=== PATIENT | male | born 1975 | race Caucasian/White ===

== ENCOUNTER 2020-01-07 15:19 | Emergency (ER) | payer BC, SELFPAY ==
--- NOTE | ~2020-01-07 | XR_ITS ---
XR finger 5th LT min 2V 01/07/2020 16:14 INDICATION: Left fifth finger pain after being smashed by rock PROCEDURE: 4 views left fifth finger COMPARISON: No prior studies for comparison. FINDINGS: Fracture, dislocation or subluxation is not identified. There is soft tissue swelling overl jay the distal phalanx ventrally with soft tissue gas, consistent with laceration. No foreign body i dentified. No foreign bodies are identified. IMPRESSION: 1: NO ACUTE BONE OR JOINT ABNORMALITY IDENTIFIED. Reviewed, dictated and finalized at location A.
[2020-01-07 15:36] VITALS: BP 134/81; PULSE 86; RESP 20; TEMP 37.1; O2SAT 100
--- NOTE | 2020-01-07 15:53 | ED.UPPEXIN ---
HPI - Extremity Injury (Upper) General Chief Complaint: Extremity Injury, Upper Stated Complaint: Left pinky injury Time Seen by Provider: 01/07/20 15:41 Source: patient and RN notes reviewed Mode of arrival: ambulatory Limitations: no limitations History of Present Illness HPI narrative: Patient presents today complaining of a laceration and injury to his left fifth finger. Injury occurred just prior to arrival. States he was lifting a piece of concrete with some metal in it. He is unsure if the metal or the concrete cut his finger. Denies numbness or tingling in the finger. States he believes he had a tetanus shot approximately 3 years ago. He has tried no [id number] interventions prior to arrival. MD complaint: injury to: finger Related Data Home Medications Medication Instructions Recorded Confirmed No Home Medications 01/07/20 01/07/20 Allergies Allergy/AdvReac Type Severity Reaction Status Date / Time No Known Allergies Allergy Verified 01/07/20 15:46 Review of Systems Review of Systems: Narrative: CONSTITUTIONAL: Denies body aches, fever, chills, or sweats. EYES: Denies visual changes, redness, or discharge. ENT: Denies rhinorrhea, congestion, sore throat, or otalgia. CARDIOVASCULAR: Denies chest pain, palpitations, or edema. RESPIRATORY: Denies cough or dyspnea. GASTROINTESTINAL: Denies abdominal pain, nausea, vomiting, or diarrhea. GENITOURINARY: Denies dysuria or hematuria. SKIN: Denies rash, itching, or wounds. MUSCULOSKELETAL: Denies back pain, or myalgia. Left fifth finger injury NEUROLOGIC: Denies headache, numbness, tingling, or weakness. PSYCH: Denies depression or anxiety. PMFSH Comments At time of signature, I have reviewed and agree with nursing past medical, surgical, social and family history unless otherwise noted. Please see nursing chart for further information. There is no relevant family history pertinent to the presenting complaint Exam Narrative: Exam Narrative: GENERAL: Well-appearing, well-nourished, and in no acute distress. HEAD: Normocephalic, atraumatic. EYES: EOMI. No redness or drainage. Conjunctivae normal. ENT: Mucous membranes pink and moist. NECK: Normal AROM. CHEST: No respiratory distress. EXTREMITIES: 2.5cm full-thickness laceration to the volar aspect of the left third finger, distal phalanx. No active bleeding. Distal sensation intact. Capillary refill normal. Full AROM against resistance. SKIN: Warm, dry, no rash. NEURO: No focal deficits. Alert and oriented x3. Gait steady. PSYCH: Normal affect. No signs of depression or anxiety. Course Vital Signs Vital signs: Vital Signs Temperature 98.7 F 01/07/20 15:36 Pulse Rate 86 01/07/20 15:36 Respiratory Rate 20 01/07/20 15:36 Blood Pressure 134/81 01/07/20 15:36 Pulse Oximetry 100 01/07/20 15:36 Temperature 98.7 F 01/07/20 15:36 Pulse Rate 86 01/07/20 15:36 Respiratory Rate 20 01/07/20 15:36 Blood Pressure 134/81 01/07/20 15:36 Pulse Oximetry 100 01/07/20 15:36 Reviewed. Pt has been instructed to follow up with his PCP regarding his elevated blood pressure today. Procedures Laceration Laceration 1: Date: 01/07/20 Time: 16:32 Site: upper extremity (Left fifth finger) Size (cm): 2.5 Description: irregular Depth: simple, single layer Local Anesthetic: lidocaine 1% Amount of anesthesia used (mL): 6 Pre-repair: wound explored and irrigated extensively ====== Skin Level ====== Skin layer closed with: nylon Size (cm): 5-0 Number of sutures: 6 ====== Subcutaneous Layer ====== ====== Muscle Layer ====== ====== Tendon Layer ====== Dressing: RN applied nonadherent dressing. Digital block achieved anesthesia. MDM - Extremity Injury (Upper) Differential Diagnosis Differential diagnosis: Likely other (Laceration, finger fracture, open fracture) Imagi
== END 2020-01-07 16:45 | disposition home or self-care (01) ==
PROVIDERS: Emergency Provider Nurse Practitioner
DX: S61.217A Laceration without foreign body of left little finger without damage to nail, initial encounter (principal); X58.XXXA Exposure to other specified factors, initial encounter
CPT/HCPCS: 12001; 73140; 99203; G0463

== ENCOUNTER 2020-01-14 15:17 | Emergency (ER) | payer BC, SELFPAY ==
[2020-01-14 15:29] VITALS: BP 141/98; PULSE 98; RESP 20; TEMP 37; O2SAT 100
--- NOTE | 2020-01-14 15:36 | ED.WOUNDLAC ---
HPI - Wound/Laceration General Chief Complaint: Wound/Laceration Stated Complaint: Suture REmoval Time Seen by Provider: 01/14/20 15:29 Source: patient, RN notes reviewed and old records reviewed Mode of arrival: ambulatory Limitations: no limitations History of Present Illness HPI narrative: Patient presents today for suture removal from his left fifth finger. 6 sutures were placed at [facility] on 01/07/2020, 7 days ago. Denies difficulties at home. Denies any current pain or drainage. Related Data Home Medications Medication Instructions Recorded Confirmed No Home Medications 01/07/20 01/07/20 Allergies Allergy/AdvReac Type Severity Reaction Status Date / Time No Known Allergies Allergy Verified 01/07/20 15:46 Review of Systems Review of Systems: Narrative: CONSTITUTIONAL: Denies body aches, fever, chills, or sweats. EYES: Denies visual changes, redness, or discharge. ENT: Denies rhinorrhea, congestion, sore throat, or otalgia. CARDIOVASCULAR: Denies chest pain, palpitations, or edema. RESPIRATORY: Denies cough or dyspnea. GASTROINTESTINAL: Denies abdominal pain, nausea, vomiting, or diarrhea. GENITOURINARY: Denies dysuria or hematuria. SKIN: Denies rash, itching. + Left fifth finger wound MUSCULOSKELETAL: Denies back pain, joint pain, or myalgia. NEUROLOGIC: Denies headache, numbness, tingling, or weakness. PSYCH: Denies depression or anxiety. PMFSH Social History Social History Gender identity (if verbalized by the patient): Male Comments At time of signature, I have reviewed and agree with nursing past medical, surgical, social and family history unless otherwise noted. Please see nursing chart for further information. There is no relevant family history pertinent to the presenting complaint Exam Narrative: Exam Narrative: GENERAL: Well-appearing, well-nourished, and in no acute distress. HEAD: Normocephalic, atraumatic. EYES: EOMI. No redness or drainage. Conjunctivae normal. ENT: Mucous membranes pink and moist. NECK: Normal AROM. CHEST: No respiratory distress. EXTREMITIES: Normal range of motion. No edema. SKIN: Warm, dry, no rash. Healing laceration to the left fifth finger. 6 sutures intact. No active drainage. Full AROM. Distal sensation intact. Capillary refill normal. No signs of infection. NEURO: No focal deficits. Alert and oriented x3. Gait steady. PSYCH: Normal affect. No signs of depression or anxiety. Course Vital Signs Vital signs: Vital Signs Temperature 98.6 F 01/14/20 15:29 Pulse Rate 98 01/14/20 15:29 Respiratory Rate 20 01/14/20 15:29 Blood Pressure 141/98 H 01/14/20 15:29 Pulse Oximetry 100 01/14/20 15:29 Temperature 98.6 F 01/14/20 15:29 Pulse Rate 98 01/14/20 15:29 Respiratory Rate 20 01/14/20 15:29 Blood Pressure 141/98 H 01/14/20 15:29 Pulse Oximetry 100 01/14/20 15:29 Reviewed. Pt has been instructed to follow up with his PCP regarding his elevated blood pressure today. Procedures Other Procedure Procedure 1: Other Procedure: 6 intact sutures removed from the left fifth finger. No signs of infection. No dehiscence noted. Small scabbing formed. MDM - Wound/Laceration Differential Diagnosis Differential diagnosis: Likely laceration and other (Dehiscence) Critical Care Time Critical Care Time Critical Care Time: No Discharge Plan Discharge Clinical Impression: Visit for suture removal Patient Disposition: Home, Self-Care Condition: Stable Instructions: Stitches Removal (ED) Additional Instructions: Your sutures have been removed. No signs of infection. Keep covered until fully healed. Follow-up with your doctor with any concerns. Your blood pressure was elevated above 120/80 today at Urgent Care. This puts you above the threshold for follow up. Please schedule a followup visit with your personal physician as soon as possible, for further evaluation and treatment. Even blood
== END 2020-01-14 15:42 | disposition home or self-care (01) ==
PROVIDERS: Emergency Provider Nurse Practitioner
DX: S61.217D Laceration without foreign body of left little finger without damage to nail, subsequent encounter (principal); X58.XXXD Exposure to other specified factors, subsequent encounter
CPT/HCPCS: 99213; G0463

== ENCOUNTER 2020-01-16 15:21 | Emergency (ER) | payer BC, SELFPAY ==
--- NOTE | 2020-01-16 15:27 | ED.WOUNDLAC ---
HPI - Wound/Laceration General Chief Complaint: Skin/Abscess/Foreign Body Stated Complaint: L/hand injury Time Seen by Provider: 01/16/20 15:29 Source: patient and RN notes reviewed Mode of arrival: ambulatory Limitations: no limitations History of Present Illness HPI narrative: 44-year-old male who presents to express care with complaints of wound to his left pinky finger volar aspect opened up last night after having sutures removed on Sunday the . Some gaping of upper aspect of laceration noted with scant yellowish drainage noted with proximal 1.5cm of wound gaping. Patient has adequate sensation to finger, nail bed blanches briskly,left radial pulse strong, states that his tetanus was about 3 years ago. 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 EYES: Denies visual changes, redness, or discharge. ENT: Denies rhinorrhea, congestion, sore throat, or otalgia. CARDIOVASCULAR: Denies chest pain, palpitations, or edema. RESPIRATORY: Denies cough or dyspnea. GASTROINTESTINAL: Denies abdominal pain, nausea, vomiting, or diarrhea. GENITOURINARY: Denies dysuria or hematuria. SKIN:proximal 1.5cm of wound opened with scant yellow drainage to volar aspect left 5th finger MUSCULOSKELETAL: Denies back pain, joint pain, or myalgia. NEUROLOGIC: Denies headache, numbness, or weakness. PSYCHIATRIC: Denies anxiety or depression. All systems reviewed & are unremarkable except as noted in HPI and below PMFSH Past Medical History Medical History (Updated 01/16/20 @ 19:29 by Whit Lewis NP) No significant medical problems Social History Social History (Updated 01/16/20 @ 16:12 by Whit Lewis NP) Smoking status: Never smoker Alcohol intake: never Living arrangements: alone Gender identity (if verbalized by the patient): Male Comments At time of signature, agree with nursing past medical, social and family history. There is no relevant family history pertinent to the presenting complaint Exam Narrative: Exam Narrative: GENERAL: Well-appearing, well-nourished, and in no acute distress. HEAD: Normocephalic, atraumatic. EYES: PERRLA and EOMI. ENT: Nares clear, no rhinorrhea or epistaxis. Mucous membranes moist. NECK: Supple. CHEST: Clear to auscultation. No respiratory distress. HEART: Regular rate and rhythm. No murmur heard. Normal peripheral pulses. ABDOMEN: Soft, non tender, non distended, normal active bowel sounds. EXTREMITIES: Normal range of motion. No edema. SKIN: Warm, dry, proximal 1.5cm of previous laceration opened with scant yellowish drainage. denies acute pain, circulation sensation and mobility intact to 5th finer left finger NEURO: No focal deficits. Alert and oriented x3. Course Vital Signs Vital signs: Vital Signs Temperature 36.5 C 01/16/20 15:45 Pulse Rate 104 H 01/16/20 15:45 Respiratory Rate 20 01/16/20 15:45 Blood Pressure 149/105 H 01/16/20 15:45 Pulse Oximetry 100 01/16/20 15:45 Temperature 36.5 C 01/16/20 15:45 Pulse Rate 104 H 01/16/20 15:45 Respiratory Rate 20 01/16/20 15:45 Blood Pressure 150/87 H 01/16/20 16:13 Pulse Oximetry 100 01/16/20 15:45 MDM - Wound/Laceration MDM Narrative Medical decision making narrative: Wound cleansed using technicare and saline irrigation of 100ml, dried with 4X4, benzoin preparation applied to edges of wound on volar aspect of left 5th finger proximal edges of wound brought together and
[2020-01-16 15:45] VITALS: BP 149/105; PULSE 104; RESP 20; TEMP 36.5; O2SAT 100
[2020-01-16 16:13] VITALS: BP 150/87
== END 2020-01-16 16:13 | disposition home or self-care (01) ==
PROVIDERS: Emergency Provider Registered Nurse
DX: T81.33XA Disruption of traumatic injury wound repair, initial encounter (principal)
CPT/HCPCS: 99213; G0463

== ENCOUNTER → 2023-11-26 10:13 | Outpatient (CLI) | payer BC, SELFPAY ==
--- NOTE | ~2023-11-26 | XR_ITS ---
XR lumbar spine 2-3V DATE: 11/26/2023 10:43 INDICATION: Lumbar bilateral radiculopathy TECHNIQUE: AP, lateral and coned lateral lumbosacral views COMPARISON: None FINDINGS: There is minimal lumbar dextroscoliosis. Normal alignment of the lumbar spine. Included T12-L5 pedicles are intact. No fracture or bone destru ction or spondylolisthesis. Minimal degenerative spurring and loss of height at L5-S1. Remaining lumbar interspaces are well pres erved. The sacroiliac joints are intact. IMPRESSION: Mild degenerative disc disease at L5-S1 Minimal dextroscoliosis Reviewed, dictated and finalized at location B. 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
== END ==
PROVIDERS: PCP Clinical Nurse Specialist; Visit Provider Clinical Nurse Specialist
DX: M54.16 Radiculopathy, lumbar region (principal); M51.37 Other intervertebral disc degeneration, lumbosacral region
CPT/HCPCS: 72100

== ENCOUNTER → 2023-11-29 09:37 | Outpatient (CLI) | payer BC, SELFPAY ==
--- NOTE | ~2023-11-29 | MR_ITS ---
MRI of the lumbar spine Clinical History: Back pain Technique: Axial T2-weighted images, and sagittal T1-weighted, T2-weighted, and T2 fat-sat images wer e acquired. Findings: There is no fracture or subluxation of the lumbar spine. Vertebral bodies maintain normal h eight and alignment. No suspicious bone marrow signal abnormality seen. At L1-L2, L2-L3, L3-L4, L4-L5, there is no disc bulge or herniation. No spinal canal stenosis or neur al foraminal narrowing at these levels. At L5-S1, there is mild disc bulge with mild facet arthropathy. No central canal stenosis. There is m ild bilateral neural foraminal narrowing. Paravertebral soft tissues are unremarkable. Impression: Mild degenerative spondylosis at L5-S1, as detailed above. Reviewed, dictated and finalized at location M. 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
== END ==
PROVIDERS: PCP Clinical Nurse Specialist; Visit Provider Clinical Nurse Specialist
DX: M47.897 Other spondylosis, lumbosacral region (principal)
CPT/HCPCS: 72148

== ENCOUNTER 2024-02-21 11:21 | Outpatient (CLI) | payer BC, SELFPAY ==
[2024-02-21 14:23] LABS: Cholesterol 243 mg/dL (0-200); HDL Direct 47 mg/dL; Triglycerides 89 mg/dL (<150)
[2024-02-21 14:33] LABS: LDL Cholesterol Direct 163 mg/dL
== END 2024-02-21 11:22 | disposition home or self-care (01) ==
LOC: ANHGOSHLAB 11:23
PROVIDERS: PCP Clinical Nurse Specialist; Visit Provider Clinical Nurse Specialist
DX: Z13.220 Encounter for screening for lipoid disorders (principal)
CPT/HCPCS: 36415; 80061